=== PATIENT | male | born 1940 | race Caucasian/White ===

== ENCOUNTER 2023-02-27 12:16 | Outpatient (CLI) | payer MEDICARE | END 2023-02-27 12:17 | disposition home or self-care (01) | LOC: RAD 12:16 | PROVIDERS: ATTEND Internal Medicine Critical Care Medicine | DX: R06.00 Dyspnea, unspecified (principal); J98.4 Other disorders of lung | CPT/HCPCS: 71046 ==

== ENCOUNTER 2024-02-26 15:34 | Outpatient (CLI) | payer MEDICARE | END 2024-02-26 15:35 | disposition home or self-care (01) | LOC: RAD 15:34 | PROVIDERS: ATTEND Internal Medicine Critical Care Medicine | DX: R06.00 Dyspnea, unspecified (principal) | CPT/HCPCS: 71046 ==

== ENCOUNTER 2024-03-04 10:08 | Inpatient (IN) | payer MEDICARE ==
[2024-03-04 10:37] LABS: Hematocrit 40.9 % (42.0-52.0); Hemoglobin 13.7 g/dL (14.0-18.0); Mean Corpuscular HGB CONC 33.5 g/dL (32.0-36.0); Mean Corpuscular Hemoglobin 32.3 pg (27.0-31.0); Mean Corpuscular Volume 96.5 fL (78.0-98.0); Mean Platelet Volume 9.5 fL (7.4-10.4); Platelet Count 180 10x3/uL (130-400); RBC Distribution Width 13.6 % (11.5-14.5); Red Blood Cell (RBC) Count 4.24 mill/uL (4.70-6.10)
[2024-03-04 11:13] LABS: Band 12 % (5-11); Lymphocytes 6 % (21-51); Monocytes 2 % (0-10); Neutrophil 79 % (42-75); Plasma Cells 0 % (0-0); Platelet Adequacy Comment Appears Adequate; Polychromasia SLIGHT = 2-3 cells (100X) (0-2/hpf); Reactive Lymphocytes 1 % (0-10); Total Cell Count 100
[2024-03-04 11:25] LABS: ALT (SGPT) 12 U/L (8-55); AST (SGOT) 17 U/L (5-34); Albumin 3.5 g/dL (3.4-4.8); Alkaline Phosphatase 61 U/L (40-110); Anion Gap 14 mmol/L (10-20); BUN (Urea Nitrogen) 33 mg/dL (8.4-25.7); Bilirubin, Total 1.3 mg/dL (0.2-1.2); Calc. Creatinine Clearance 0 mL/min (70-130); Carbon Dioxide 21 mmol/L (23-31); Chloride 99 mmol/L (98-107); Estimated GFR 44; Globulin 3.2 g/dL (2.4-3.5); Glucose 286 mg/dL (83-110); Lipase 11 U/L (8-78); Potassium 4.7 mmol/L (3.5-5.1); Protein, Total 6.7 g/dL (5.8-8.1); Sodium 129 mmol/L (136-145)
[2024-03-04 11:30] LABS: Troponin I 0.031 ng/mL (< 0.028)
[2024-03-04] MEDS ORDERED: Ipratropium/Albuterol 3 ML NEB ONE (11:42)
[2024-03-04 12:52] LABS: Large Platelets 0.9 % (0-5); Metamyelocyte 2 % (0-0); Vacuoles SLIGHT
[2024-03-04] MEDS ORDERED: Cefepime 2 GM VIAL ONE (13:43)
[2024-03-04] MEDS ORDERED: Sodium Chloride 0.9% 100 ML ONE (13:48)
[2024-03-04] MEDS ORDERED: Iopamidol-370 76% 500 ML MDV (1 ML CHARGE) ONE (15:17)
[2024-03-04] MEDS ORDERED: Ipratropium/Albuterol 3 ML NEB NEB PRN (15:35)
[2024-03-04 16:10] LABS: Troponin I 0.019 ng/mL (< 0.028)
[2024-03-04 16:54] LABS: Lactic Acid 1.99 mmol/L (0.5-2.2)
[2024-03-04 17:35] VITALS: BMI 19.2
[2024-03-04] MEDS: Lactated Ringer's 1,000 ML IV SCH (17:43)
[2024-03-04 18:31] LABS: Troponin I 0.028 ng/mL (< 0.028)
[2024-03-04] MEDS: cefTRIAXone\\ROCEPHIN 2 GM in Sodium Chloride 0.9% 100 ML IVPB SCH (20:29)
[2024-03-04] MEDS: lamoTRIgine 100 MG TAB PO SCH (22:34)
[2024-03-04] MEDS: Lithium Carbonate 300 MG ER.TAB PO SCH (22:34)
[2024-03-04] MEDS: Flecainide 50 MG TAB PO SCH (22:35)
[2024-03-05] MEDS: Lithium Carbonate 300 MG ER.TAB PO SCH (01:23)
[2024-03-05] MEDS: lamoTRIgine 100 MG TAB PO SCH (01:24)
[2024-03-05] MEDS: Flecainide 50 MG TAB PO SCH (01:24)
[2024-03-05 03:50] LABS: #Basophils 0.06 10x3/uL (0.0-0.2); %Basophils 0.2 % (0.0-1.0); %Eosinophils 0.2 % (0.0-10.0); %Lymphocytes 9.4 % (21.0-51.0); %Monocytes 4.9 % (0.0-10.0); %Neutrophils 83.6 % (42.0-75.0); Hematocrit 35.3 % (42.0-52.0); Hemoglobin 11.4 g/dL (14.0-18.0); Mean Corpuscular HGB CONC 32.3 g/dL (32.0-36.0); Mean Corpuscular Volume 99.2 fL (78.0-98.0); Mean Platelet Volume 9.5 fL (7.4-10.4); Platelet Count 153 10x3/uL (130-400); RBC Distribution Width 13.7 % (11.5-14.5); Red Blood Cell (RBC) Count 3.56 mill/uL (4.70-6.10)
[2024-03-05 04:02] LABS: Anion Gap 7 mmol/L (10-20); BUN (Urea Nitrogen) 26 mg/dL (8.4-25.7); Calc. Creatinine Clearance 41 mL/min (70-130); Calcium 8.8 mg/dL (7.8-10.44); Carbon Dioxide 28 mmol/L (23-31); Chloride 103 mmol/L (98-107); Estimated GFR 56; Glucose 128 mg/dL (83-110); Sodium 134 mmol/L (136-145)
[2024-03-05] MEDS: Enoxaparin 40 MG (0.4 mL) SYRINGE SC SCH (08:19)
[2024-03-05] MEDS: cefTRIAXone\\ROCEPHIN 2 GM in Sodium Chloride 0.9% 100 ML IVPB SCH (22:49)
[2024-03-06 04:32] LABS: #Basophils 0.04 10x3/uL (0.0-0.2); %Basophils 0.3 % (0.0-1.0); %Eosinophils 2.4 % (0.0-10.0); %Monocytes 6.6 % (0.0-10.0); %Neutrophils 73.5 % (42.0-75.0); Hemoglobin 12.6 g/dL (14.0-18.0); Mean Corpuscular HGB CONC 32.3 g/dL (32.0-36.0); Mean Corpuscular Hemoglobin 31.7 pg (27.0-31.0); Mean Corpuscular Volume 98.2 fL (78.0-98.0); Mean Platelet Volume 9.8 fL (7.4-10.4); Platelet Count 178 10x3/uL (130-400); RBC Distribution Width 13.3 % (11.5-14.5); Red Blood Cell (RBC) Count 3.97 mill/uL (4.70-6.10)
[2024-03-06 04:49] LABS: ALT (SGPT) 14 U/L (8-55); AST (SGOT) 21 U/L (5-34); Albumin 2.8 g/dL (3.4-4.8); Alkaline Phosphatase 59 U/L (40-110); Anion Gap 11 mmol/L (10-20); BUN (Urea Nitrogen) 24 mg/dL (8.4-25.7); Bilirubin, Total 0.2 mg/dL (0.2-1.2); Calc. Creatinine Clearance 54 mL/min (70-130); Carbon Dioxide 25 mmol/L (23-31); Chloride 104 mmol/L (98-107); Estimated GFR 78; Globulin 3.6 g/dL (2.4-3.5); Glucose 103 mg/dL (83-110); Potassium 4.1 mmol/L (3.5-5.1); Protein, Total 6.4 g/dL (5.8-8.1); Sodium 136 mmol/L (136-145)
[2024-03-06] MEDS ORDERED: Albuterol 1.25 MG (3 mL) NEB INH PRN (16:18)
[2024-03-06] MEDS: Rivaroxaban 10 MG TAB PO SCH (17:46)
[2024-03-06] MEDS: Saccharomyces boulardii 250 MG CAP PO SCH (17:46)
[2024-03-06] MEDS: guaiFENesin/DM ER PO SCH (21:04)
[2024-03-07 05:32] LABS: #Basophils 0.05 10x3/uL (0.0-0.2); %Basophils 0.6 % (0.0-1.0); %Eosinophils 3.9 % (0.0-10.0); %Lymphocytes 21.7 % (21.0-51.0); %Monocytes 7.2 % (0.0-10.0); %Neutrophils 66.2 % (42.0-75.0); Mean Corpuscular HGB CONC 31.7 g/dL (32.0-36.0); Mean Corpuscular Hemoglobin 31.9 pg (27.0-31.0); Mean Corpuscular Volume 100.5 fL (78.0-98.0); Mean Platelet Volume 10.4 fL (7.4-10.4); Platelet Count 206 10x3/uL (130-400); RBC Distribution Width 13.5 % (11.5-14.5); Red Blood Cell (RBC) Count 4.08 mill/uL (4.70-6.10)
[2024-03-07 05:52] LABS: Anion Gap 13 mmol/L (10-20); BUN (Urea Nitrogen) 21 mg/dL (8.4-25.7); Calc. Creatinine Clearance 52 mL/min (70-130); Calcium 9.5 mg/dL (7.8-10.44); Carbon Dioxide 28 mmol/L (23-31); Chloride 101 mmol/L (98-107); Estimated GFR 75; Glucose 136 mg/dL (83-110); Potassium 4.4 mmol/L (3.5-5.1); Sodium 138 mmol/L (136-145)
[2024-03-07] MEDS: Losartan 25 MG TAB PO SCH (07:51)
[2024-03-07] MEDS: Acetaminophen 325 MG TAB PO PRN (07:51)
[2024-03-07 12:30] VITALS: BP 144/80; TEMP 97.3
== END 2024-03-07 14:30 | disposition home or self-care (01) | DRG 871 ==
LOC: ERS 10:08 → ERHOLD 14:21 → 2SE 17:23 → OBSVTOIN 03-05 11:46
PROVIDERS: ADMIT Hospitalist; ATTEND Family Medicine
DX: A41.89 Other specified sepsis (principal); J18.0 Bronchopneumonia, unspecified organism; J96.01 Acute respiratory failure with hypoxia; N17.9 Acute kidney failure, unspecified; E87.1 Hypo-osmolality and hyponatremia; J44.0 Chronic obstructive pulmonary disease with (acute) lower respiratory infection; I5A Non-ischemic myocardial injury (non-traumatic); I48.0 Paroxysmal atrial fibrillation; Z79.01 Long term (current) use of anticoagulants; Z86.73 Personal history of transient ischemic attack (TIA), and cerebral infarction without residual deficits; F41.9 Anxiety disorder, unspecified; Z95.0 Presence of cardiac pacemaker; Z79.899 Other long term (current) drug therapy
CPT/HCPCS: 36415; 36416; 71045; 71260; 80048; 80053; 80178; 83605; 83690; 83880; 84443; 84484; 85025; 87040; 93005; 94640; 94760; 96365; 96372; G0378; J0692; J0696; J1650; J7120; J7620; Q9967